=== PATIENT | female | born 1965 | race Caucasian/White ===

== ENCOUNTER 2018-07-12 12:36 | Outpatient (CLI) | payer OTHER ==
--- NOTE | 2018-07-12 14:24 | RAD ---
RIGHT ELBOW 4 VIEWS: HISTORY: Right elbow pain without injury. COMPARISON: None. FINDINGS/IMPRESSION: No fracture, dislocation, or other significant acute osseous abnormality. POS: [facility]
== END 2018-07-12 12:37 | disposition home or self-care (01) ==
LOC: BICRAD 12:36
PROVIDERS: ATTEND Family Medicine
DX: M25.521 Pain in right elbow (principal)

== ENCOUNTER 2020-03-20 14:06 | Inpatient (IN) | payer OTHER ==
[~2020-03-20 14:06] MED LIST: Iopamidol-370 76% 500 ML 1 ML ONE
[2020-03-20 14:58] LABS: #Basophils 0.1 thou/uL (0.0-0.2); #Lymphocytes 2.9 thou/uL (1.20-3.40); #Monocytes 1.1 thou/uL (0.11-0.59); #Neutrophils 7.2 thou/uL (1.40-6.50); %Basophils 0.8 % (0.0-1.0); %Eosinophils 0.4 % (0.0-10.0); %Lymphocytes 25.5 % (21.0-51.0); %Monocytes 9.9 % (0.0-10.0); %Neutrophils 63.4 % (42.0-75.0); Hemoglobin 16.5 g/dL (12.0-16.0); Mean Corpuscular HGB CONC 33.9 g/dL (32.0-36.0); Mean Corpuscular Hemoglobin 31.3 pg (27.0-31.0); Mean Corpuscular Volume 92.4 fL (78.0-98.0); Mean Platelet Volume 9.6 fL (7.4-10.4); Platelet Count 214 thou/uL (130-400); RBC Distribution Width 11.7 % (11.5-14.5); Red Blood Cell (RBC) Count 5.26 mill/uL (4.20-5.40); White Blood Cell (WBC) Count 11.4 thou/uL (4.8-10.8)
[2020-03-20] MEDS ORDERED: Morphine 4 MG/ML VIAL ONE (15:13)
[2020-03-20] MEDS ORDERED: Ondansetron PF 4 MG/2 ML Vial ONE (15:13)
[2020-03-20 15:19] LABS: ALT (SGPT) 18 U/L (8-55); AST (SGOT) 31 U/L (5-34); Albumin 4.7 g/dL (3.5-5.0); Alkaline Phosphatase 76 U/L (40-110); Anion Gap 19 mmol/L (10-20); BUN (Urea Nitrogen) 46 mg/dL (9.8-20.1); Bilirubin, Total 0.6 mg/dL (0.2-1.2); Calc. Creatinine Clearance 0 mL/min (70-130); Calcium 9.8 mg/dL (7.8-10.44); Carbon Dioxide 28 mmol/L (22-29); Chloride 84 mmol/L (98-107); Estimated GFR-MDRD 35; Glucose 141 mg/dL (70-105); Potassium 3.8 mmol/L (3.5-5.1); Protein, Total 8.7 g/dL (6.0-8.3); Sodium 127 mmol/L (136-145)
[2020-03-20 15:39] LABS: CKMB 4.6 ng/mL (0-6.6)
[2020-03-20] MEDS ORDERED: Lidocaine Viscous Sol 2% 15 ml UD Cup ONE (15:40)
[2020-03-20] MEDS ORDERED: Midazolam HCl 2 mg/2 ml Vial ONE (15:40)
--- NOTE | 2020-03-20 15:47 | CT ---
CT abdomen and pelvis with IV contrast HISTORY: Abdominal pain. Nausea vomiting. FINDINGS: The lung bases are clear. There is a 0.7 cm cyst within the upper portion medial segment le ft liver lobe. The gallbladder is surgically absent. Calcification throughout the arterial structures. Markedly dilated fluid and gas-filled loops of small bowel throughout the abdomen measuring up to 4.9 cm. Completely decompressed colon and distal ileum are evident. Within the central lower abdomen, the abrupt transition is present without mass visible. No free air or free fluid. A 1.6 cm dystrophic calcification within the left gluteal subcutaneous fat is likely related to an old injection granuloma or other injury. IMPRESSION : Very high-grade distal small bowel obstruction within the lower anterior abdomen/upper central pelvis . Presumed adhesion. Atherosclerosis.
[2020-03-20] MEDS ORDERED: Ondansetron PF 4 MG/2 ML Vial IVP PRN (16:30)
[2020-03-20] MEDS ORDERED: hydrALAZINE 20 MG/ML VIAL SLOW IVP PRN (16:30)
[2020-03-20] MEDS ORDERED: Morphine 2 MG/ML VIAL SLOW IVP PRN (16:30)
[2020-03-20] MEDS ORDERED: Sodium Chloride 0.9% 1,000 ML IV SCH (16:45)
--- NOTE | 2020-03-20 16:55 | RAD ---
EXAM: XR Chest 1 View Portable PROVIDED CLINICAL HISTORY: Vomiting COMPARISON: 03/04/2017 FINDINGS: Cardiac and mediastinal silhouette is within normal limits. No focal consolidation, pleural fluid or pneumothorax apparent. Enteric catheter is noted, the tip of which overlies the left upper abdomen. Partially visualized dilated gas-filled loops of small bowel. IMPRESSION: No evidence for an acute cardiopulmonary process. Enteric catheter placement as above.
[2020-03-20 17:49] LABS: Troponin I 0.015 ng/mL (< 0.028)
--- NOTE | 2020-03-20 18:18 | HP ---
HISTORY OF PRESENT ILLNESS: Padma Cronin is a 55-year-old female lives in [place], caring for young children. She is . She last Dayron, 5 days ago had been experiencing abdominal distention, nausea, vomiting, crampy abdominal pain. Last bowel movement was prior to that. She does not recall. She has not passed any flatus. She presents to the emergency room, abdomen distended and tympanitic. CAT scan obtained revealed changes consistent with bowel obstruction. She is dehydrated with acute kidney injury and her sodium is 132. She has proximal small bowel dilatation, distal decompression. She was begun on IV fluids. NG tube has been placed. Plans is admission, rehydration. Check abdominal x-rays in the morning and small-bowel follow-through. She has had a previous laparoscopic cholecystectomy and a complete hysterectomy. She most likely has adhesive disease for bowel obstruction. ALLERGIES: NONE. SOCIAL HISTORY: Tobacco 1.5 Pack per day, alcohol rarely. MEDICATIONS: For high blood pressure, not listed. PAST SURGICAL AND MEDICAL HISTORY: Laparoscopic cholecystectomy, hysterectomy complete. PAST MEDICAL HISTORY: Noncontributory. The patient has never had a colonoscopy. She is due for a mammogram this year. She has owned a bar in the past, but is retired taking, care of her grandchildren, raising them, less than 10 years of age. PHYSICAL EXAMINATION: VITAL SIGNS: Blood pressure 124/78, respiratory rate 18, heart rate 76. HEAD EARS, EYES, NOSE AND THROAT: Unremarkable. LUNGS: Clear to auscultation. CARDIAC: Rhythm without murmur or gallop. ABDOMEN: Distended, tympanitic. Hyperactive bowel sounds. EXTREMITIES: No edema. LABORATORY DATA: Sodium 127, potassium 3.8, BUN 46, creatinine 1.55, GFR 35, glucose 144. White count 11.4, hemoglobin 16.5. ASSESSMENT/PLAN: 1. Bowel obstruction, severe dehydration with acute kidney injury secondary to dehydration. Continue hydration. Place a nasogastric tube. Repeat abdominal x-rays in the morning. 2. Tobacco abuse. 3. Prior hysterectomy and cholecystectomy. Job ID: [id number]
[2020-03-20 19:08] LABS: Bacteria/HPF None Seen HPF (None Seen); Bilirubin Negative (Negative); Blood, Urine Trace (Negative); Clarity Clear (Clear); Glucose, Urine (Dipstick) Normal (Negative); Ketone, Urine Negative (Negative); Leukocyte Negative Leu/uL (Negative); Nitrite Negative (Negative); Protein, Urine (Dipstick) Negative (Neg-Trace); RBC/HPF 0-3 HPF (0-3); Specific Gravity, Urine 1.022 (1.002-1.036); Squamous Epithelial None Seen HPF (0-3); Urobilinogen Normal mg/dL (Less than 2); WBC/HPF 0-3 HPF (0-3); pH, Urine 5.5 (5.0-9.0)
[2020-03-20 21:24] VITALS: BMI 29.5
[2020-03-20] MEDS: Sodium Chloride 0.9% 1,000 ML IV SCH ×2 (22:00→22:07)
[2020-03-20] MEDS: Enoxaparin Sodium 40 MG/0.4 ML SYRINGE SC SCH (22:01)
[2020-03-20] MEDS: Famotidine/PF 20 mg/2ml Vial SLOW IVP SCH (22:01)
[2020-03-21] MEDS: Sodium Chloride 0.9% 1,000 ML IV SCH ×3 (02:13→11:31)
[2020-03-21 03:11] LABS: SARS-CoV-2 MS2 Positive; SARS-CoV-2 N Gene Negative; SARS-CoV-2 S Gene Negative; SARS-CoV-2 by NAA Not Detected (NotDetected); SARS-CoV-2 orf1ab Negative
[2020-03-21] MEDS: Morphine 4 MG/ML VIAL SLOW IVP PRN ×2 (07:02→16:15)
--- NOTE | 2020-03-21 09:35 | RAD ---
KUB AND UPRIGHT AND PA CHEST: Date: 03/21/2020 HISTORY: Small bowel obstruction follow-up. COMPARISON: CT examination done yesterday. FINDINGS: NG tube is seen coiled in the fundus region of the stomach. Marked small bowel distention is still pr esent, perhaps slightly reduced as compared to the prior study. Surgical clips are seen in the right upper quadrant of the abdomen. No free air demonstrated. PA CHEST: Heart size and mediastinum are within normal limits. Lungs are clear of infiltrates. IMPRESSION: Findings consistent with a high grade small bowel obstruction. The degree of distention is minimally improved as compared to the previous CT game manager film. POS: [facility]
[2020-03-21] MEDS: Famotidine/PF 20 mg/2ml Vial SLOW IVP SCH ×2 (09:54→20:13)
--- NOTE | 2020-03-21 11:38 | RAD ---
EXAM: XR Small Bowel STANDARD PROVIDED CLINICAL HISTORY: Small bowel obstruction. COMPARISON: Acute abdominal series on 03/21/2020 obtained prior to this exam. FINDINGS: Nasogastric tube is noted in place coiled within the region of the fundus and proximal body of the st omach. There is prominent small bowel dilatation with contrast persisting in the stomach and jejunum imaging up to 2 hours and 40 minutes. Findings are suggestive of a high-grade partial small b owel obstruction. IMPRESSION: 1. High-grade partial small bowel obstruction with contrast persisting in the stomach and proximal je junum imaging up to 2 hours and 40 minutes. 2. Above findings discussed with Dr. Hayes on 03/21/2020 at 1116 hours.
[2020-03-21 11:42] LABS: #Basophils 0.1 thou/uL (0.0-0.2); #Neutrophils 10.3 thou/uL (1.40-6.50); %Basophils 0.4 % (0.0-1.0); %Eosinophils 0.3 % (0.0-10.0); %Lymphocytes 13.7 % (21.0-51.0); %Monocytes 13.6 % (0.0-10.0); Hemoglobin 14.9 g/dL (12.0-16.0); Mean Corpuscular Hemoglobin 33.3 pg (27.0-31.0); Mean Corpuscular Volume 97.8 fL (78.0-98.0); Mean Platelet Volume 9.7 fL (7.4-10.4); Platelet Count 174 thou/uL (130-400); RBC Distribution Width 11.9 % (11.5-14.5); Red Blood Cell (RBC) Count 4.47 mill/uL (4.20-5.40); White Blood Cell (WBC) Count 14.3 thou/uL (4.8-10.8)
[2020-03-21] MEDS ORDERED: Ketorolac Tromethamine 30 MG/ML VIAL ONE (12:02)
[2020-03-21 12:09] LABS: ALT (SGPT) 40 U/L (8-55); AST (SGOT) 64 U/L (5-34); Alkaline Phosphatase 65 U/L (40-110); Anion Gap 15 mmol/L (10-20); BUN (Urea Nitrogen) 23 mg/dL (9.8-20.1); Bilirubin, Total 0.6 mg/dL (0.2-1.2); Calc. Creatinine Clearance 81 mL/min (70-130); Carbon Dioxide 27 mmol/L (22-29); Chloride 101 mmol/L (98-107); Estimated GFR-MDRD 69; Glucose 102 mg/dL (70-105); Potassium 3.6 mmol/L (3.5-5.1); Protein, Total 7.3 g/dL (6.0-8.3); Sodium 139 mmol/L (136-145)
[2020-03-21 12:27] LABS: Globulin 3.2 g/dL (2.4-3.5)
[2020-03-21] MEDS ORDERED: Ketorolac Tromethamine 30 MG/ML VIAL IVP SCH (12:30)
[2020-03-21] MEDS ORDERED: Meropenem 2 GM in Sodium Chloride 0.9% 100 ML IVPB SCH (12:30)
[2020-03-21] MEDS ORDERED: Lidocaine 1% w/Epinephrine 1:100K 20 ML VIAL ONE (12:39)
[2020-03-21] MEDS ORDERED: Bupivacaine PF 0.5% 30 ML VIAL ONE (12:39)
[2020-03-21] MEDS ORDERED: Fentanyl 100 MCG/2 ML VIAL ONE (12:46)
[2020-03-21] MEDS ORDERED: Midazolam HCl 2 mg/2 ml Vial ONE (12:46)
[2020-03-21] MEDS ORDERED: Sodium Chloride 0.9% 0 ML ONE (12:55)
[2020-03-21] MEDS ORDERED: Acetaminophen 500 MG TAB PO PRN (14:36)
[2020-03-21] MEDS ORDERED: traMADol HCl 50 MG TAB PO PRN (14:36)
[2020-03-21] MEDS ORDERED: Promethazine HCl 25 MG/ML VIAL SLOW IVP PRN (14:57)
[2020-03-21] MEDS ORDERED: Ondansetron HCl/PF 4 MG/2 ML Vial IVP PRN (14:57)
[2020-03-21] MEDS ORDERED: Meperidine HCl/PF 25 MG/ML VIAL SLOW IVP PRN (14:57)
[2020-03-21] MEDS ORDERED: Promethazine HCl 25 MG/ML VIAL IM PRN (14:57)
[2020-03-21] MEDS ORDERED: HYDROmorphone 2 MG/ML VIAL SLOW IVP PRN (14:57)
[2020-03-21] MEDS: Potassium Chloride 20 MEQ in Lactated Ringer's 1,000 ML IV SCH (16:10)
--- NOTE | 2020-03-21 16:12 | PRG ---
DATE OF SERVICE: 03/21/2020 SUBJECTIVE: Padma Cronin was seen earlier today. Padma Cronin today has a copious output of her NG tube. She has not passed any flatus or stool. Small bowel follow-through ordered, reveals nonprogression of contrast. Abdominal x-rays ordered, reveals persistent dilated small bowel loops consistent with bowel obstruction. 98.5 degrees, 90, 104/66. As mentioned above, NG tube output overnight 250 mL. Basic metabolic profile is normal. BUN and creatinine 23 and 0.86, essentially returned normal. White count 14, hemoglobin 14. ASSESSMENT AND PLAN: Small bowel obstruction. She will need operative intervention. We would recommend laparoscopic, possible laparotomy, lysis of adhesions, and indicated procedures. She understands risks and benefits, consents. Job ID: [id number]
--- NOTE | 2020-03-21 19:45 | OP ---
DATE OF PROCEDURE: 03/21/2020 PREOPERATIVE DIAGNOSIS: Bowel obstruction secondary to adhesions. POSTOPERATIVE DIAGNOSIS: Bowel obstruction secondary to adhesions. PROCEDURE PERFORMED: Laparoscopic adhesiolysis, single adhesion causing a complete bowel obstruction. ANESTHESIA: General, local 0.5% Marcaine 30 mL mixed with 1% Xylocaine with epinephrine 20 mL. DESCRIPTION OF PROCEDURE: The patient was taken to the operating room, where under general anesthesia, Campbell catheter was placed at the beginning of the procedure and removed at the end. Abdomen was prepared with ChloraPrep and draped in routine fashion. Local anesthetic was infiltrated in the skin and subcutaneous tissues at each port site. Left lateral subcostal incision was made. Pneumoperitoneum to 15 mmHg was obtained with a Veress needle, replaced with a 5 port. Left lateral mid incision was made and a 5 port placed. Left lower quadrant incision was made and a 5 port was placed under laparoscopic visualization. Small bowel was markedly dilated. Distal small bowel was decompressed. Distal small bowel was identified and marched proximally identifying the adhesive band, releasing it with the LigaSure, releasing the complete obstruction. There was a definite transition point at this location. The small bowel was healthy and did not require resection. Pneumoperitoneum was evacuated. All instruments were removed and all skin incisions were approximated with subdermal 4-0 Monocryl, and Gilt Edge glue applied. Job ID: [id number]
[2020-03-21] MEDS: Enoxaparin Sodium 40 MG/0.4 ML SYRINGE SC SCH (19:59)
[2020-03-21] MEDS ORDERED: Atorvastatin Calcium 40 MG TAB PO SCH (21:00)
[2020-03-21] MEDS: traMADol HCl 50 MG TAB PO PRN (23:58)
[2020-03-22] MEDS: Potassium Chloride 20 MEQ in Lactated Ringer's 1,000 ML IV SCH (02:41)
[2020-03-22 04:33] VITALS: TEMP 98.3
[2020-03-22 07:06] LABS: Anion Gap 11 mmol/L (10-20); BUN (Urea Nitrogen) 12 mg/dL (9.8-20.1); Calc. Creatinine Clearance 101 mL/min (70-130); Calcium 7.7 mg/dL (7.8-10.44); Carbon Dioxide 26 mmol/L (22-29); Chloride 101 mmol/L (98-107); Estimated GFR-MDRD 89; Glucose 101 mg/dL (70-105); Potassium 3.7 mmol/L (3.5-5.1); Sodium 134 mmol/L (136-145)
[2020-03-22] MEDS: Famotidine/PF 20 mg/2ml Vial SLOW IVP SCH (08:28)
[2020-03-22] MEDS: traMADol HCl 50 MG TAB PO PRN (08:32)
[2020-03-22] MEDS ORDERED: busPIRone HCl 5 MG TAB PO SCH (09:00)
[2020-03-22] MEDS ORDERED: Escitalopram Oxalate 20 mg Tablet PO SCH (09:00)
[2020-03-22 09:07] VITALS: BP 99/58
[2020-03-22] MEDS ORDERED: Ibuprofen 600 MG TAB PO PRN (10:20)
== END 2020-03-22 12:25 | disposition home or self-care (01) | DRG 336 ==
LOC: ERS 14:06 → ONC 16:10
PROVIDERS: ADMIT Specialist; ATTEND Specialist
PROC: 0DN84ZZ Release Small Intestine, Percutaneous Endoscopic Approach (ICD-10-PCS; principal; 2020-03-21)
DX: K56.52 Intestinal adhesions [bands] with complete obstruction (principal); N17.9 Acute kidney failure, unspecified; Z20.828 Contact with and (suspected) exposure to other viral communicable diseases; F41.9 Anxiety disorder, unspecified; F32.9 Major depressive disorder, single episode, unspecified; F17.210 Nicotine dependence, cigarettes, uncomplicated; E86.0 Dehydration; Z90.49 Acquired absence of other specified parts of digestive tract; Z90.710 Acquired absence of both cervix and uterus; Z79.899 Other long term (current) drug therapy
CPT/HCPCS: 36415; 43752; 71045; 74022; 74177; 74250; 80048; 80053; 81003; 81015; 82553; 83605; 83690; 84484; 85025; 87635; 93005; 96374; 96375; J1650; J1885; J2250; J2270; J2405; J3010; J3480; J7120; Q9967; S0020; S0028; U0003

== ENCOUNTER 2022-06-10 12:45 | Inpatient (IN) | payer OTHER ==
[2022-06-10 14:38] LABS: #Basophils 0.1 thou/uL (0.0-0.2); #Eosinphils 0.1 thou/uL (0.0-0.7); #Lymphocytes 3.7 thou/uL (1.20-3.40); #Monocytes 0.7 thou/uL (0.11-0.59); #Neutrophils 5.3 thou/uL (1.40-6.50); %Basophils 0.6 % (0.0-1.0); %Eosinophils 1.5 % (0.0-10.0); %Lymphocytes 37.2 % (21.0-51.0); %Monocytes 7.5 % (0.0-10.0); %Neutrophils 53.2 % (42.0-75.0); Hemoglobin 12.8 g/dL (12.0-16.0); Mean Corpuscular HGB CONC 34.9 g/dL (32.0-36.0); Mean Corpuscular Hemoglobin 34.4 pg (27.0-31.0); Mean Corpuscular Volume 98.7 fl (78.0-98.0); Mean Platelet Volume 9.3 fL (7.4-10.4); Platelet Count 214 10x3/uL (130-400); Red Blood Cell (RBC) Count 3.73 mill/uL (4.20-5.40); White Blood Cell (WBC) Count 9.9 10x3/uL (4.8-10.8)
[2022-06-10 14:40] LABS: Anion Gap 12 mmol/L (10-20); BUN (Urea Nitrogen) 17 mg/dL (9.8-20.1); Calc. Creatinine Clearance 0 mL/min (70-130); Carbon Dioxide 26 mmol/L (22-29); Chloride 106 mmol/L (98-107); Sodium 140 mmol/L (136-145)
[2022-06-10 14:41] LABS: ALT (SGPT) 13 U/L (8-55); AST (SGOT) 16 U/L (5-34); Albumin 3.9 g/dL (3.5-5.0); Alkaline Phosphatase 70 U/L (40-110); Bilirubin, Total 0.2 mg/dL (0.2-1.2); Estimated GFR 88; Globulin 3.3 g/dL (2.4-3.5); Glucose 101 mg/dL (70-105); Protein, Total 7.2 g/dL (6.0-8.3)
[2022-06-10] MEDS ORDERED: Acetaminophen 325 MG TAB PO PRN (20:18)
[2022-06-10] MEDS ORDERED: HYDROcodone/Acetaminophen 5/325 mg Tablet PO PRN ×2 (20:18)
[2022-06-10] MEDS: Nicotine 21 MG PATCH TD SCH (20:34)
[2022-06-11 06:52] LABS: #Eosinphils 0.1 thou/uL (0.0-0.7); #Lymphocytes 2.8 thou/uL (1.20-3.40); #Monocytes 0.5 thou/uL (0.11-0.59); #Neutrophils 3.2 thou/uL (1.40-6.50); %Basophils 0.7 % (0.0-1.0); %Eosinophils 1.5 % (0.0-10.0); %Monocytes 7.5 % (0.0-10.0); %Neutrophils 48.3 % (42.0-75.0); Hemoglobin 12.1 g/dL (12.0-16.0); Mean Corpuscular HGB CONC 33.6 g/dL (32.0-36.0); Mean Corpuscular Volume 98.1 fl (78.0-98.0); Mean Platelet Volume 8.9 fL (7.4-10.4); Platelet Count 231 10x3/uL (130-400); RBC Distribution Width 11.9 % (11.5-14.5); Red Blood Cell (RBC) Count 3.66 mill/uL (4.20-5.40); White Blood Cell (WBC) Count 6.6 10x3/uL (4.8-10.8)
[2022-06-11 07:15] LABS: Anion Gap 12 mmol/L (10-20); BUN (Urea Nitrogen) 11 mg/dL (9.8-20.1); Calc. Creatinine Clearance 107 mL/min (70-130); Carbon Dioxide 26 mmol/L (22-29); Chloride 105 mmol/L (98-107); Estimated GFR 102; Glucose 98 mg/dL (70-105); Sodium 139 mmol/L (136-145)
[2022-06-11] MEDS: busPIRone HCl 5 MG TAB PO SCH (08:34)
[2022-06-11] MEDS: Escitalopram Oxalate 20 mg Tablet PO SCH (08:34)
[2022-06-11 17:23] LABS: Hemoglobin 12.4 g/dL (12.0-16.0); Platelet Count 250 10x3/uL (130-400)
[2022-06-11 17:38] LABS: PTT 36.9 sec (22.9-36.1); Prothrombin Time 13.1 sec (12.0-14.7)
[2022-06-11 17:45] LABS: D-Dimer Test 5.61 *mcg/mL (0.27-0.43)
[2022-06-11] MEDS: Nicotine 21 MG PATCH TD SCH (21:10)
[2022-06-11 21:16] VITALS: BMI 31.6
[2022-06-11] MEDS: Heparin 25,000 units/D5W 500 ML IVPB SCH (21:51)
[2022-06-11] MEDS: Heparin 10,000 UNITS/ 10 ML VIAL SLOW IVP SCH (21:52)
[2022-06-11 23:51] LABS: PTT 244.9 sec (22.9-36.1)
[2022-06-12 02:26] LABS: Anion Gap 11 mmol/L (10-20); BUN (Urea Nitrogen) 15 mg/dL (9.8-20.1); Calc. Creatinine Clearance 102 mL/min (70-130); Calcium 9.2 mg/dL (7.8-10.44); Carbon Dioxide 26 mmol/L (22-29); Chloride 104 mmol/L (98-107); Estimated GFR 101; Glucose 113 mg/dL (70-105); Potassium 4.2 mmol/L (3.5-5.1); Sodium 137 mmol/L (136-145)
[2022-06-12] MEDS: busPIRone HCl 5 MG TAB PO SCH (09:09)
[2022-06-12] MEDS: Escitalopram Oxalate 20 mg Tablet PO SCH (09:09)
[2022-06-12] MEDS: Heparin 25,000 units/D5W 500 ML IVPB SCH (10:57)
[2022-06-12] MEDS: Heparin 10,000 UNITS/ 10 ML VIAL SLOW IVP SCH (11:14)
[2022-06-12] MEDS: Nicotine 21 MG PATCH TD SCH (20:53)
[2022-06-13] MEDS: Heparin 10,000 UNITS/ 10 ML VIAL SLOW IVP SCH (01:13)
[2022-06-13 07:19] LABS: #Basophils 0.1 thou/uL (0.0-0.2); #Eosinphils 0.1 thou/uL (0.0-0.7); #Lymphocytes 3.2 thou/uL (1.20-3.40); #Monocytes 0.5 thou/uL (0.11-0.59); #Neutrophils 5.3 thou/uL (1.40-6.50); %Basophils 0.6 % (0.0-1.0); %Eosinophils 1.4 % (0.0-10.0); %Monocytes 5.5 % (0.0-10.0); %Neutrophils 57.4 % (42.0-75.0); Hemoglobin 13.5 g/dL (12.0-16.0); Mean Corpuscular Hemoglobin 33.3 pg (27.0-31.0); Mean Corpuscular Volume 97.9 fl (78.0-98.0); Mean Platelet Volume 8.9 fL (7.4-10.4); Platelet Count 279 10x3/uL (130-400); RBC Distribution Width 11.9 % (11.5-14.5); Red Blood Cell (RBC) Count 4.05 mill/uL (4.20-5.40); White Blood Cell (WBC) Count 9.2 10x3/uL (4.8-10.8)
[2022-06-13 07:37] LABS: Anion Gap 12 mmol/L (10-20); BUN (Urea Nitrogen) 12 mg/dL (9.8-20.1); Calc. Creatinine Clearance 99 mL/min (70-130); Calcium 9.3 mg/dL (7.8-10.44); Carbon Dioxide 25 mmol/L (22-29); Chloride 104 mmol/L (98-107); Estimated GFR 98; Glucose 106 mg/dL (70-105); Potassium 4.4 mmol/L (3.5-5.1); Sodium 137 mmol/L (136-145)
[2022-06-13] MEDS: busPIRone HCl 5 MG TAB PO SCH (08:13)
[2022-06-13] MEDS: Escitalopram Oxalate 20 mg Tablet PO SCH (08:13)
[2022-06-13 13:49] LABS: Factor VIII Test 156.6 % ACTIVE (56-157); Protein C Activity 85 % (78-152)
[2022-06-13 15:46] LABS: Reference Lab Name LABCORP
[2022-06-13 15:47] LABS: Ref Lab Test Ordered PROTEIN S PANEL
[2022-06-13 18:12] LABS: Hemoglobin 13.3 g/dL (12.0-16.0); Platelet Count 286 10x3/uL (130-400)
[2022-06-13] MEDS: Apixaban 5 MG TAB PO SCH (20:01)
[2022-06-13] MEDS: Nicotine 21 MG PATCH TD SCH (20:02)
[2022-06-14 07:13] VITALS: BP 117/69; TEMP 97.7
[2022-06-14] MEDS: busPIRone HCl 5 MG TAB PO SCH (08:44)
[2022-06-14] MEDS: Apixaban 5 MG TAB PO SCH (08:44)
[2022-06-14] MEDS: Escitalopram Oxalate 20 mg Tablet PO SCH (08:44)
[2022-06-14 18:46] LABS: Cardiolipin IgA Ab 3.1 APL-U/mL (<14 Negative); Cardiolipin IgG Ab 2.3 GPL-U/mL (<10 Negative); Cardiolipin IgM Ab Less than 0.9 MPL-U/mL (<10 Negative); EliA APS New Method **** NEW METHOD ****
[2022-06-17 12:29] LABS: HEX PHOS LA Tube 1 54.2 SEC; HEX PHOS LA Tube 2 45.1 SEC; Hexagonal Phospholipid Neut 9.2 SEC (0-8.0)
[2022-06-20] MEDS ORDERED: Apixaban 5 MG TAB PO SCH (21:00)
== END 2022-06-14 12:10 | disposition home or self-care (01) | DRG 299 ==
LOC: ERS 12:45 → T4-B 17:04 → OBSVTOIN 06-11 17:06 → 2NO 06-11 20:05
PROVIDERS: ADMIT Hospitalist; ATTEND Hospitalist
DX: I82.412 Acute embolism and thrombosis of left femoral vein (principal); I26.99 Other pulmonary embolism without acute cor pulmonale; D68.59 Other primary thrombophilia; I82.432 Acute embolism and thrombosis of left popliteal vein; I82.442 Acute embolism and thrombosis of left tibial vein; F17.210 Nicotine dependence, cigarettes, uncomplicated; R91.1 Solitary pulmonary nodule; F32.A Depression, unspecified; E78.5 Hyperlipidemia, unspecified; F41.9 Anxiety disorder, unspecified; Z79.899 Other long term (current) drug therapy; Z90.49 Acquired absence of other specified parts of digestive tract; Z90.710 Acquired absence of both cervix and uterus; Z90.89 Acquired absence of other organs; Z98.51 Tubal ligation status; Z84.89 Family history of other specified conditions
CPT/HCPCS: 36415; 36416; 71260; 74177; 80048; 80053; 83090; 85014; 85018; 85025; 85049; 85240; 85300; 85303; 85305; 85307; 85379; 85598; 85610; 85730; 86147; 93306; 96372; J1644; J1650; Q9967; U0003; U0005

== ENCOUNTER 2022-08-21 07:27 | Outpatient (CLI) | payer OTHER | END 2022-08-21 07:28 | disposition home or self-care (01) | LOC: RAD 07:27 | PROVIDERS: ATTEND Internal Medicine Critical Care Medicine | DX: R06.00 Dyspnea, unspecified (principal) | CPT/HCPCS: 71046 ==

== ENCOUNTER 2023-12-15 13:12 | Outpatient (CLI) | payer OTHER ==
[2023-12-15] MEDS ORDERED: Iopamidol 370 76% 100 ML VIAL ONE (13:21)
== END 2023-12-15 13:13 | disposition home or self-care (01) ==
LOC: BICCT 13:12
PROVIDERS: ATTEND Internal Medicine
DX: I26.99 Other pulmonary embolism without acute cor pulmonale (principal); R91.8 Other nonspecific abnormal finding of lung field; J98.4 Other disorders of lung
CPT/HCPCS: 71260; Q9967

== ENCOUNTER 2024-04-29 13:53 | Inpatient (IN) | payer OTHER ==
[~2024-04-29 13:53] MED LIST changes: -Iopamidol-370 76% 500 ML 1 ML ONE; +Iopamidol-370 76% 500 ML MDV (1 ML CHARGE) ONE
[2024-04-29 15:18] LABS: #Basophils Less than 0.03 10x3/uL (0.0-0.2); #Eosinophils Less than 0.03 10x3/uL (0.0-0.7); %Basophils 0.1 % (0.0-1.0); %Eosinophils 0.1 % (0.0-10.0); %Lymphocytes 24.7 % (21.0-51.0); %Monocytes 5.3 % (0.0-10.0); %Neutrophils 69.5 % (42.0-75.0); Hematocrit 42.1 % (36.0-47.0); Hemoglobin 14.1 g/dL (12.0-16.0); Mean Corpuscular HGB CONC 33.5 g/dL (32.0-36.0); Mean Corpuscular Hemoglobin 31.6 pg (27.0-31.0); Mean Corpuscular Volume 94.4 fL (78.0-98.0); Mean Platelet Volume 11.3 fL (7.4-10.4); Platelet Count 224 10x3/uL (130-400); RBC Distribution Width 13.2 % (11.5-14.5); Red Blood Cell (RBC) Count 4.46 mill/uL (4.20-5.40)
[2024-04-29 15:41] LABS: ALT (SGPT) 12 U/L (8-55); AST (SGOT) 32 U/L (5-34); Albumin 3.9 g/dL (3.5-5.0); Alkaline Phosphatase 67 U/L (40-110); Anion Gap 11 mmol/L (10-20); BUN (Urea Nitrogen) 11 mg/dL (9.8-20.1); Bilirubin, Total 0.2 mg/dL (0.2-1.2); Calc. Creatinine Clearance 0 mL/min (70-130); Calcium 9.4 mg/dL (7.8-10.44); Carbon Dioxide 26 mmol/L (22-29); Chloride 100 mmol/L (98-107); Estimated GFR 95; Globulin 3.7 g/dL (2.4-3.5); Glucose 116 mg/dL (70-105); Potassium 4.1 mmol/L (3.5-5.1); Protein, Total 7.6 g/dL (6.0-8.3); Sodium 133 mmol/L (136-145)
[2024-04-29 15:57] LABS: Troponin I 2.632 ng/mL (< 0.028)
[2024-04-29] MEDS ORDERED: Nitroglycerin 2% Ointment 1 INCH/1 GM Packet ONE (16:04)
[2024-04-29] MEDS ORDERED: Aspirin Chewable 81 MG TAB ONE (16:04)
[2024-04-29] MEDS ORDERED: Enoxaparin 60 MG (0.6 mL) SYRINGE ONE (16:04)
[2024-04-29] MEDS ORDERED: Acetaminophen 650 MG Suppository PR PRN (19:12)
[2024-04-29] MEDS ORDERED: Ketorolac Tromethamine 30 MG (1 mL) VIAL IVP PRN (19:12)
[2024-04-29] MEDS ORDERED: Acetaminophen 325 MG TAB PO PRN (19:12)
[2024-04-29] MEDS ORDERED: Nitroglycerin 0.4 MG TAB (25 Tab Bottle) SL PRN (19:12)
[2024-04-29] MEDS ORDERED: Morphine 2 MG/ML VIAL SLOW IVP PRN (19:16)
[2024-04-29 19:23] LABS: Troponin I 6.547 ng/mL (< 0.028)
[2024-04-29 20:09] VITALS: BMI 27.6
[2024-04-29 22:20] LABS: Troponin I 9.182 ng/mL (< 0.028)
[2024-04-30] MEDS: Famotidine 20 MG TAB PO SCH (00:25)
[2024-04-30] MEDS: Communication Order-Pharmacy FS ONE (00:25)
[2024-04-30] MEDS: Nitroglycerin 2% Ointment 1 INCH/1 GM Packet TOP SCH (00:25)
[2024-04-30 04:36] LABS: Hemoglobin A1c 5.4 % (4.0-6.0)
[2024-04-30 04:44] LABS: Anion Gap 12 mmol/L (10-20); BUN (Urea Nitrogen) 10 mg/dL (9.8-20.1); Calc. Creatinine Clearance 82 mL/min (70-130); Calcium 8.8 mg/dL (7.8-10.44); Carbon Dioxide 23 mmol/L (22-29); Cardiac Risk 5.2 (Less than 4.5); Chloride 104 mmol/L (98-107); Cholesterol 192 mg/dl (< 200 Desired); Estimated GFR 95; Glucose 133 mg/dL (70-105); HDL Cholesterol 37 mg/dL (>60 Neg Risk); LDL Cholesterol, Calculated 127 mg/dL; Magnesium 2.1 mg/dL (1.6-2.6); Potassium 4.2 mmol/L (3.5-5.1); Sodium 135 mmol/L (136-145); Triglycerides 141 mg/dL (Less than 150)
[2024-04-30 04:49] LABS: #Basophils 0.03 10x3/uL (0.0-0.2); #Eosinophils Less than 0.03 10x3/uL (0.0-0.7); %Basophils 0.3 % (0.0-1.0); %Eosinophils 0.2 % (0.0-10.0); %Lymphocytes 25.1 % (21.0-51.0); %Monocytes 7.7 % (0.0-10.0); %Neutrophils 66.3 % (42.0-75.0); Hematocrit 37.6 % (36.0-47.0); Hemoglobin 12.7 g/dL (12.0-16.0); Mean Corpuscular HGB CONC 33.8 g/dL (32.0-36.0); Mean Corpuscular Volume 94.7 fL (78.0-98.0); Mean Platelet Volume 11.6 fL (7.4-10.4); Platelet Count 204 10x3/uL (130-400); RBC Distribution Width 13.4 % (11.5-14.5); Red Blood Cell (RBC) Count 3.97 mill/uL (4.20-5.40)
[2024-04-30 04:51] LABS: Troponin I 11.315 ng/mL (< 0.028)
[2024-04-30] MEDS: Enoxaparin 60 MG (0.6 mL) SYRINGE SC SCH (06:43)
[2024-04-30] MEDS ORDERED: Iopamidol 370 76% 100 ML VIAL ONE (10:48)
[2024-04-30] MEDS ORDERED: Adenosine 6 mg (2 mL) VIAL ONE ×2 (11:56→15:26)
[2024-04-30] MEDS ORDERED: Verapamil 5 MG/2 ML VIAL ONE ×2 (11:58→15:27)
[2024-04-30] MEDS ORDERED: Heparin 10,000 UNITS/ 10 ML VIAL ONE (11:58)
[2024-04-30] MEDS ORDERED: Nitroglycerin 50 MG/250 ML BOT 0 ML ONE (11:59)
[2024-04-30] MEDS: Aspirin 81 mg Enteric Coated Tablet PO SCH (12:03)
[2024-04-30] MEDS ORDERED: Midazolam HCl 2 mg/2 ml Vial ONE (12:57)
[2024-04-30] MEDS ORDERED: fentaNYL 50 mcg/mL 1 mL Vial ONE ×2 (12:57→15:27)
[2024-04-30] MEDS ORDERED: niCARdipine 25 MG/10 ML SDV ONE (15:27)
[2024-04-30] MEDS ORDERED: Nitroglycerin 50 MG/250 ML BOT 250 ML ONE (15:27)
[2024-04-30] MEDS ORDERED: PHENYLEPHRINE-NS 100 MCG/ML 10 ML SYRINGE ONE (16:19)
[2024-04-30] MEDS ORDERED: Atropine Sulfate 1 mg/10 ml Syringe ONE (16:19)
[2024-04-30] MEDS ORDERED: Clopidogrel Bisulfate 300 MG TAB ONE (16:43)
[2024-04-30] MEDS ORDERED: Nitroglycerin 0.4 MG TAB (25 Tab Bottle) SL PRN (16:48)
[2024-04-30] MEDS ORDERED: Acetaminophen/Codeine 30-300mg Tablet PO PRN ×2 (16:48)
[2024-04-30] MEDS ORDERED: Sodium Chloride 0.9% 200 ML IV PRN (16:48)
[2024-04-30] MEDS: Atorvastatin Calcium 40 MG TAB PO SCH (20:29)
[2024-04-30] MEDS: Metoprolol Tartrate 25 MG TAB PO SCH (20:30)
[2024-05-01] MEDS: Clopidogrel Bisulfate 75 MG TAB PO SCH (08:51)
[2024-05-01] MEDS: Bupropion 150 MG SR.TAB PO SCH (08:51)
[2024-05-01] MEDS: Aspirin 81 mg Enteric Coated Tablet PO SCH (08:51)
[2024-05-01] MEDS ORDERED: FLU (Fluarix Triv) TS24-25(6MOS UP)/PF 45 MCG/0.5 ML Syringe IM ONE (09:00)
[2024-05-01 12:54] LABS: Troponin I 5.317 ng/mL (< 0.028)
[2024-05-01] MEDS: Sodium Chloride 0.9% 500 ML IV SCH (15:35)
[2024-05-02 04:47] LABS: #Basophils Less than 0.03 10x3/uL (0.0-0.2); %Basophils 0.3 % (0.0-1.0); %Eosinophils 0.4 % (0.0-10.0); %Lymphocytes 38.7 % (21.0-51.0); %Monocytes 9.9 % (0.0-10.0); %Neutrophils 50.4 % (42.0-75.0); Hemoglobin 13.3 g/dL (12.0-16.0); Mean Corpuscular HGB CONC 33.3 g/dL (32.0-36.0); Mean Corpuscular Hemoglobin 31.6 pg (27.0-31.0); Mean Platelet Volume 11.6 fL (7.4-10.4); Platelet Count 189 10x3/uL (130-400); RBC Distribution Width 13.3 % (11.5-14.5); Red Blood Cell (RBC) Count 4.21 mill/uL (4.20-5.40)
[2024-05-02 04:55] LABS: Anion Gap 14 mmol/L (10-20); BUN (Urea Nitrogen) 10 mg/dL (9.8-20.1); Calc. Creatinine Clearance 85 mL/min (70-130); Calcium 8.8 mg/dL (7.8-10.44); Carbon Dioxide 21 mmol/L (22-29); Chloride 109 mmol/L (98-107); Estimated GFR 98; Glucose 107 mg/dL (70-105); Potassium 4.2 mmol/L (3.5-5.1); Sodium 140 mmol/L (136-145)
[2024-05-02 09:25] VITALS: BP 107/61; TEMP 99.2
[2024-05-02] MEDS: Apixaban 5 MG TAB PO SCH (09:47)
== END 2024-05-02 14:57 | disposition home or self-care (01) | DRG 280 ==
LOC: ERS 13:53 → 2NO 18:04
PROVIDERS: ADMIT Internal Medicine; ATTEND Student in an Organized Health Care Education/Training Program
PROC: 4A023N7 Measurement of Cardiac Sampling and Pressure, Left Heart, Percutaneous Approach (ICD-10-PCS; principal; 2024-04-30)
PROC: B2111ZZ Fluoroscopy of Multiple Coronary Arteries using Low Osmolar Contrast (ICD-10-PCS; 2024-04-30)
DX: I21.4 Non-ST elevation (NSTEMI) myocardial infarction (principal); I26.99 Other pulmonary embolism without acute cor pulmonale; I25.10 Atherosclerotic heart disease of native coronary artery without angina pectoris; Z86.718 Personal history of other venous thrombosis and embolism; Z90.49 Acquired absence of other specified parts of digestive tract; Z90.710 Acquired absence of both cervix and uterus; Z98.51 Tubal ligation status; F41.9 Anxiety disorder, unspecified; F32.A Depression, unspecified; F17.210 Nicotine dependence, cigarettes, uncomplicated; Z79.01 Long term (current) use of anticoagulants; Z79.899 Other long term (current) drug therapy
CPT/HCPCS: 36415; 36416; 71045; 71275; 80048; 80053; 80061; 83036; 83735; 84443; 84484; 85025; 93005; 93458; 94760; 96372; 97139; 99152; 99153; C1894; J0153; J0461; J1644; J1650; J2250; J3010; J7030; Q9967

== ENCOUNTER 2024-12-26 16:17 | Observation (INO) | payer MEDICAID, OTHER ==
[2024-12-26] MEDS ORDERED: Aspirin Chewable 81 MG TAB ONE (16:51)
[2024-12-26 16:57] LABS: Hematocrit 37.6 % (36.0-47.0); Hemoglobin 12.4 g/dL (12.0-16.0); Mean Corpuscular Hemoglobin 32.3 pg (27.0-31.0); Mean Corpuscular Volume 97.9 fL (78.0-98.0); Platelet Count 186 10x3/uL (130-400); Red Blood Cell (RBC) Count 3.84 mill/uL (4.20-5.40); White Blood Cell (WBC) Count 6.31 10x3/uL (4.8-10.8)
[2024-12-26 17:05] LABS: ALT (SGPT) 20 U/L (Less than 34); AST (SGOT) 22 U/L (11-34); Albumin 4.1 g/dL (3.1-4.5); Alkaline Phosphatase 60 U/L (40-110); Anion Gap 13 mmol/L (10-20); BUN (Urea Nitrogen) 13 mg/dL (9.8-20.1); Bilirubin, Total 0.3 mg/dL (0.3-1.2); Calc. Creatinine Clearance 0 mL/min (70-130); Calcium 8.9 mg/dL (7.8-10.44); Carbon Dioxide 23 mmol/L (22-29); Chloride 104 mmol/L (98-107); Globulin 2.8 g/dL (2.4-3.5); Glucose 90 mg/dL (70-105); Lipase 27 U/L (8-78); Potassium 3.9 mmol/L (3.5-5.1); Sodium 136 mmol/L (136-145)
[2024-12-26 17:47] LABS: Macrocytosis SLIGHT = 6-15 cells HPF (0-5); Ovalocytes SLIGHT = 2-5 cells HPF (0-1); Platelet Adequacy Comment Platelets Normal; Polychromasia SLIGHT = 2-3 cells HPF (0-2); Smudge Cells 5.0 %; Toxic Granulation SLIGHT
[2024-12-26] MEDS ORDERED: Nitroglycerin 0.4 MG TAB (25 Tab Bottle) SL PRN (21:30)
[2024-12-26] MEDS ORDERED: Melatonin 3 MG TAB PO PRN (21:30)
[2024-12-26] MEDS ORDERED: Ondansetron PF 4 MG/2 ML Vial IVP PRN (21:30)
[2024-12-26] MEDS ORDERED: Guaifenesin DM 100-10/5 ML UDCUP PO PRN (21:30)
[2024-12-26] MEDS ORDERED: Electrolyte Replacement Protocol 1 EACH FS SCH (21:30)
[2024-12-26 23:07] VITALS: BMI 31.0
[2024-12-26] MEDS: Metoprolol Succinate XL 25 MG ER.TAB PO SCH (23:55)
[2024-12-26] MEDS: Apixaban 5 MG TAB PO SCH (23:56)
[2024-12-27] MEDS: Apixaban 5 MG TAB PO SCH (02:43)
[2024-12-27 04:55] LABS: Hematocrit 35.6 % (36.0-47.0); Hemoglobin 11.5 g/dL (12.0-16.0); Mean Corpuscular Hemoglobin 31.9 pg (27.0-31.0); Mean Corpuscular Volume 98.9 fL (78.0-98.0); Platelet Count 178 10x3/uL (130-400); Red Blood Cell (RBC) Count 3.60 mill/uL (4.20-5.40); White Blood Cell (WBC) Count 3.96 10x3/uL (4.8-10.8)
[2024-12-27 05:19] LABS: ALT (SGPT) 21 U/L (Less than 34); AST (SGOT) 28 U/L (11-34); Albumin 3.6 g/dL (3.1-4.5); Anion Gap 13 mmol/L (10-20); BUN (Urea Nitrogen) 12 mg/dL (9.8-20.1); Bilirubin, Total 0.2 mg/dL (0.3-1.2); Calc. Creatinine Clearance 70 mL/min (70-130); Calcium 8.4 mg/dL (7.8-10.44); Carbon Dioxide 22 mmol/L (22-29); Cardiac Risk 3.7 (Less than 4.5); Chloride 104 mmol/L (98-107); Cholesterol 111 mg/dl (< 200 Desired); Globulin 3.0 g/dL (2.4-3.5); Glucose 88 mg/dL (70-105); HDL Cholesterol 30 mg/dL (>60 Neg Risk); LDL Cholesterol, Calculated 58 mg/dL; Potassium 3.4 mmol/L (3.5-5.1); Sodium 136 mmol/L (136-145); Triglycerides 117 mg/dL (Less than 150)
[2024-12-27] MEDS: Acetaminophen 325 MG TAB PO PRN (05:26)
[2024-12-27 05:27] LABS: Platelet Adequacy Comment Platelets Normal
[2024-12-27 05:39] LABS: Alkaline Phosphatase 52 U/L (40-110)
[2024-12-27] MEDS: Dapagliflozin Propanediol 10 MG TAB PO SCH (09:08)
[2024-12-27] MEDS: Famotidine 20 MG TAB PO SCH (09:08)
[2024-12-27] MEDS: Spironolactone 25 MG TAB PO SCH (09:08)
[2024-12-27] MEDS: Metoprolol Succinate XL 25 MG ER.TAB PO SCH (12:45)
[2024-12-27 15:44] VITALS: BP 108/64; TEMP 98.4
== END 2024-12-27 16:20 | disposition home or self-care (01) ==
LOC: ERS 16:17 → 2NO 21:30
PROVIDERS: ADMIT Family Medicine; ATTEND Student in an Organized Health Care Education/Training Program
PROC: B24BZZZ Ultrasonography of Heart with Aorta (ICD-10-PCS; principal; 2024-12-27)
DX: R07.89 Other chest pain (principal); R11.0 Nausea; R61 Generalized hyperhidrosis; I25.10 Atherosclerotic heart disease of native coronary artery without angina pectoris; F17.210 Nicotine dependence, cigarettes, uncomplicated; Z98.51 Tubal ligation status; Z86.711 Personal history of pulmonary embolism; Z90.49 Acquired absence of other specified parts of digestive tract; Z90.710 Acquired absence of both cervix and uterus; Z90.89 Acquired absence of other organs; Z79.01 Long term (current) use of anticoagulants; Z79.82 Long term (current) use of aspirin; Z79.02 Long term (current) use of antithrombotics/antiplatelets; Z79.899 Other long term (current) drug therapy
CPT/HCPCS: 36415; 71045; 71275; 80053; 80061; 83690; 83880; 84484; 85025; 93005; 93306; 94760; 96374; G0378; J3010